=== PATIENT | male | born 1980 | race Caucasian/White ===

== ENCOUNTER 2019-05-08 12:05 | Emergency (ER) | payer OTHER ==
--- NOTE | 2019-05-08 13:52 | ED Physician Documentation ---
PD HPI SKIN - Stated complaint Stated Complaint: R FOOT PX - Chief complaint Chief Complaint: Wound - History obtained from History obtained from: Patient - History of Present Illness Timing - onset: How many days ago (He had a previous lump in his foot break open and has some purulent discharge last night. It is draining a little bit still this morning. He has had 2 lumps on his foot for a year or more after stepping on a nail. He thought that may be some foreign body still left in there. He had seen an orthopedist and had x-ray and MRI without any residual foreign body seen. However he does have a rounded area of granulation tissue that has been unknowingly in the way on the bottom of his foot. However the orthopedic surgeon did not want to remove it at the time. He is recently moved up here. He had not had it drained fluid before.) Timing - details: Abrupt onset (the drainage was abrupt last night. Has had local lump/swelling there for a year or so) Location: RLE (bottom middle arch of right foot.) Quality / character: Painful, Draining Similar symptoms before: No diagnosis Review of Systems Constitutional: denies: Fever, Chills GI: denies: Nausea, Vomiting PD PAST MEDICAL HISTORY - Past Medical History Past Medical History: Yes Cardiovascular: None Respiratory: None Neuro: None Endocrine/Autoimmune: None GI: None : None HEENT: None Psych: None Musculoskeletal: None Derm: None - Past Surgical History Past Surgical History: Yes - Present Medications Home Medications: Ambulatory Orders Medication Instructions Recorded Confirmed Doxycycline Monohydrate 100 mg PO BID #14 tablet 05/08/19 Ibuprofen [Motrin] 600 mg PO TID PRN #25 tab 05/08/19 Mupirocin 1 applic TP TID #15 g 05/08/19 - Allergies Allergies/Adverse Reactions: Allergies Allergy/AdvReac Type Severity Reaction Status Date / Time No Known Drug Allergies Allergy Verified 05/08/19 12:10 - Social History Does the pt smoke?: Yes Smoking Status: Current every day smoker Does the pt drink ETOH?: Yes Does the pt have substance abuse?: Yes Substance Use and Type: Marijuana - Immunizations Immunizations are current?: Yes - POLST Patient has POLST: No PD ED PE NORMAL - Vitals Vital signs reviewed: Yes - General General: Alert and oriented X 3, Well developed/nourished - Derm Derm: Normal color, Warm and dry - Extremities Extremities: Other (The bottom of the right foot and the lateral aspect of the longitudinal arch shows 2 rounded firm areas without redness. Each is about 2 cm in size and adjacent to each other. 1 of them has an opening of the skin small ulceration with mild purulent discharge. Bedside ultrasound showed some thicker granulation tissue walling off both sites under the skin without any residual fluid collections at either spot.) - Neuro Neuro: No motor deficit, No sensory deficit Results - Vitals Vitals: Vital Signs - 24 hr 05/08/19 05/08/19 12:10 14:41 Temperature 36.6 C 36.6 C Heart Rate 66 61 Respiratory 15 18 Rate Blood Pressure 143/89 H 136/80 H O2 Saturation 100 98 Oxygen O2 Source Room air PD MEDICAL DECISION MAKING - ED course Complexity details: considered differential (bedside U/S showed the area to be drained with firm granulation tissue surrounding the cavity. It does not appear to need further I&D.), d/w patient ED course: I referred the patient to podiatry and also orthopedics. I think he would benefit from having these areas of granulation tissue removed from the bottom of his foot as they do look bothersome to walk on and since the one has now gotten infected. We will treat the infection now and he can follow-up with them for potential surgical removal. They are not deep to involve the tendons or such so I would think would be easily surgically removed. Departure - Departure Disposition: 01 Home, Self Care Clinical Impression: Foot infection Condition: Stable Record reviewed to determine appropriate education?: Yes Follow-Up: [facility] [Provider Group] Ankush Hutton MD [Provider Admit Priv/Credential] - Prescriptions: Doxycycline Monohydrate 100 mg PO BID #14 tablet Ibuprofen [Motrin] 600 mg PO TID PRN #25 tab PRN Reason: Pain Mupirocin 1 applic TP TID #15 g Comments: Soak your food in warm water to 3 times a day. You can apply antibiotic ointment mupirocin 2 the open sore. Doxycycline antibiotic twice daily for a week. Add ibuprofen 3 times a day for pain and inflammation. With this regimen, the infection should clear. Also call to follow-up with either podiatry or orthopedics for evaluation to have the underlying granulation tissue (scar tissue) removed. Discharge Date/Time: 05/08/19 14:45
[2019-05-08] MEDS ORDERED: DOXYCYCLINE 100 MG TABLET PO STA (14:31)
[2019-05-08] MEDS ORDERED: IBUPROFEN 600 MG TABLET PO STA (14:31)
[2019-05-08 14:41] VITALS: BP 136/80
== END 2019-05-08 14:45 | disposition home or self-care (01) ==
LOC: ED 12:05
DX: L08.9 Local infection of the skin and subcutaneous tissue, unspecified (principal); F17.200 Nicotine dependence, unspecified, uncomplicated
CPT/HCPCS: 99283; A9270

== ENCOUNTER 2019-09-16 13:33 | Emergency (ER) | payer OTHER ==
[2019-09-16 13:40] VITALS: BP 156/89
--- NOTE | 2019-09-16 15:27 | ED Physician Documentation ---
PD HPI HEENT - Stated complaint Stated Complaint: TOOTH PX - Chief complaint Chief Complaint: Heent - History obtained from History obtained from: Patient - History of Present Illness Timing - onset: How many days ago (3) Timing - duration: Days (3) Timing - details: Gradual onset, Still present Location: Tooth Improves: Medication Worsens: Everything Associated symptoms: Headache. No: Fever, Congestion, Rhinorrhea, Cough Similar symptoms before: Has not had sx before Recently seen: Not recently seen - Additional information Additional information: Previously well 39-year-old male has developed some pain and swelling in his right lower jaw. He has had mounting pain in his pain is now become intolerable as well as the swelling. He has had symptoms for about 3 days and this morning they are intolerable. He has not had fever he has not had this happen to him previously he does have a broken tooth on that side and feels that that is the culprit on this condition as the tooth is very tender. Review of Systems Constitutional: denies: Fever, Chills, Myalgias Eyes: denies: Decreased vision Ears: denies: Ear pain Nose: denies: Rhinorrhea / runny nose, Congestion Throat: reports: Dental pain / toothache Cardiac: denies: Chest pain / pressure, Palpitations Respiratory: denies: Dyspnea, Cough PD PAST MEDICAL HISTORY - Past Medical History Past Medical History: No Cardiovascular: None Respiratory: None Neuro: None Endocrine/Autoimmune: None GI: None : None HEENT: None Psych: None Musculoskeletal: None Derm: None - Past Surgical History Past Surgical History: Yes - Present Medications Home Medications: Ambulatory Orders Medication Instructions Recorded Confirmed Doxycycline Monohydrate 100 mg PO BID #14 tablet 05/08/19 Ibuprofen [Motrin] 600 mg PO TID PRN #25 tab 05/08/19 Mupirocin 1 applic TP TID #15 g 05/08/19 Amoxicillin 875 mg PO BID #14 tablet 09/16/19 Hydrocodone/Acetaminophen 1 - 2 each PO Q6H PRN #14 tablet 09/16/19 [Hydrocodon-Acetaminophen 5-325] - Allergies Allergies/Adverse Reactions: Allergies Allergy/AdvReac Type Severity Reaction Status Date / Time No Known Drug Allergies Allergy Verified 05/08/19 12:10 - Social History Does the pt smoke?: Yes Smoking Status: Current every day smoker Does the pt drink ETOH?: Yes Does the pt have substance abuse?: Yes - Immunizations Immunizations are current?: Yes - POLST Patient has POLST: No PD ED PE NORMAL - Vitals Vital signs reviewed: Yes (hypertensive ) - General General: Alert and oriented X 3, No acute distress, Well developed/nourished - HEENT HEENT: Atraumatic, PERRL, EOMI, Other (There is swelling to the right lower jaw. The swelling is firm to palpation externally and over the buccal/gingival fold. There is a broken tooth on the right lower next to the last molar. 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, No motor deficit, No sensory deficit, Normal speech Eye Opening: Spontaneous Motor: Obeys Commands Verbal: Oriented GCS Score: 15 - Psych Psych: Normal mood, Normal affect Results - Vitals Vitals: Vital Signs - 24 hr 09/16/19 13:35 Temperature 37 C Heart Rate 56 L Respiratory 18 Rate Blood Pressure 156/89 H O2 Saturation 99 Oxygen O2 Source Room air PD MEDICAL DECISION MAKING - ED course Complexity details: reviewed old records, considered differential, d/w patient ED course: 39-year-old male with swelling to the right lower jaw has firm swelling without fluctuance and he has an impressive amount of swelling. He has a broken tooth. We will place him on some amoxicillin and pain medication and asked him to follow-up here should he have development of fluctuance and to follow-up with his dentist for repair of his tooth. Departure - Departure Disposition: 01 Home, Self Care Clinical Impression: Dental abscess Condition: Stable Instructions: ED Abscess Dental Follow-Up: Alvaro Colindres [facility] [Provider Group] Prescriptions: Amoxicillin 875 mg PO BID #14 tablet Hydrocodone/Acetaminophen [Hydrocodon-Acetaminophen 5-325] 1 - 2 each PO Q6H PRN #14 tablet PRN Reason: pain
== END 2019-09-16 16:01 | disposition home or self-care (01) ==
LOC: ED 13:33
DX: K04.7 Periapical abscess without sinus (principal); F17.200 Nicotine dependence, unspecified, uncomplicated
CPT/HCPCS: 99282

== ENCOUNTER 2020-08-31 16:29 | Emergency (ER) | payer OTHER ==
[2020-08-31] MEDS ORDERED: TETANUS/DIPHTHERIA/PERTUSSIS 0.5 ML SYRINGE IM ONE (16:42)
[2020-08-31] MEDS ORDERED: ROPIVACAINE 0.5% PF 20 ML AMPULE SUBQ STA (16:51)
--- OUTSIDE RECORDS SUMMARY | 2020-08-31 16:59 | EXTERNAL MEDICAL SUMMARY RPT | Continuity of Care Document ---
:1980 Demographics Phone Unavailable Preferred Language Unknown Marital Status Unknown [employer] Affiliation Unknown Race Unknown Ethnic Group Unknown Author Organization [place] Address [address] [id number] Phone Social History date description facility [phone]
--- NOTE | 2020-08-31 17:08 | ED Physician Documentation ---
PD HPI UPPER EXT INJURY - Stated complaint Stated Complaint: LT THUMB LAC - Chief complaint Chief Complaint: Laceration - History obtained from History obtained from: Patient - History of Present Illness Location: Left, Finger (thumb) Type of injury: Laceration Where injury occurred: Home Pain level max: 6 Pain level now: 4 Improved by: Rest Worsened by: Moving, Palpating Associated symptoms: No: Weakness, Numbness, Tingling, Swelling - Additonal information Additional information: 40-year-old male with a laceration to the left thumb from an ax while cutting kindling today. Unknown last tetanus shot. Patient is right-handed. Review of Systems Constitutional: denies: Fever GI: denies: Vomiting Skin: denies: Rash PD PAST MEDICAL HISTORY - Past Medical History Past Medical History: Yes Cardiovascular: None Respiratory: None Neuro: None Endocrine/Autoimmune: None GI: None : None HEENT: None Psych: None Musculoskeletal: None Derm: None - Past Surgical History Past Surgical History: Yes - Present Medications Home Medications: Ambulatory Orders Medication Instructions Recorded Confirmed cephALEXin [Keflex] 500 mg PO Q6H #28 cap 08/31/20 - Allergies Allergies/Adverse Reactions: Allergies Allergy/AdvReac Type Severity Reaction Status Date / Time No Known Drug Allergies Allergy Verified 08/31/20 16:36 - Social History Does the pt smoke?: No Smoking Status: Former smoker Does the pt drink ETOH?: No Does the pt have substance abuse?: Yes Substance Use and Type: Marijuana - Immunizations Immunizations are current?: Yes - POLST Patient has POLST: No PD ED PE NORMAL - Vitals Vital signs reviewed: Yes - General General: Alert and oriented X 3, No acute distress - HEENT HEENT: Moist mucous membranes - Derm Derm: Warm and dry - Neuro Neuro: Alert and oriented X 3 - Psych Psych: Normal mood, Normal affect PD ED PE EXPANDED - Extremities DEJA UE/Hands Visual: 1 - laceration (3cm, curved, through nail and pad of thumb) Results - Vitals Vitals: Vital Signs - 24 hr 08/31/20 08/31/20 16:37 17:54 Temperature 36.2 C L 37.1 C Heart Rate 56 L 67 Respiratory 18 16 Rate Blood Pressure 128/76 116/65 O2 Saturation 100 96 Oxygen O2 Source Room air - Rads (name of study) L thumb xray Radiology: Prelim report reviewed, EMP read contemporaneously, See rad report (Minimal comminuted fracture seen involving the distal tip of the distal phalanx of the thumb, with associated soft tissue injury. ) Procedures - Laceration (location) L thumb Length in cm: 3 Wound type: Flap Neurovascular status: Sensory intact, Motor intact, Vascular intact Tendon involvement: Tendon intact Anesthesia: OTH (0.5% ropivicaine) Wound preparation: Irrigated copiously NS, Wound explored, To the base Skin layer closure: Nylon, Dermabond, Interrupted, Size #-0 - enter number (4) Other: Patient tolerated well, No complications, Neurovascular intact, Tetanus booster given (tdap) PD MEDICAL DECISION MAKING - ED course Complexity details: reviewed results, re-evaluated patient, considered differential, d/w patient ED course: Laceration repaired. Tolerated well. We will place on Keflex. There is a minimal comminuted fracture in the distal tip of the phalanx. Placed in a splint. We will have him follow-up with his doctor for wound check in about a week. Patient counseled regarding signs and symptoms for which I believe and urgent re-evaluation would be necessary. Patient with good understanding of and agreement to plan and is comfortable going home at this time This document was made in part using voice recognition software. While efforts are made to proofread this document, sound alike and grammatical errors may occur. Departure - Departure Disposition: 01 Home, Self Care Clinical Impression: Laceration of finger Qualifiers: Encounter type: initial encounter Finger: thumb Damage to nail status: with damage Foreign body presence: without foreign body Laterality: left Qualified Code(s): S61.112A - Laceration without foreign body of left thumb with damage to nail, initial encounter Condition: Good Instructions: ED Laceration Hand Follow-Up: Your,doctor in 1 week [Other] Prescriptions: cephALEXin [Keflex] 500 mg PO Q6H #28 cap Comments: Follow-up with your doctor in about 1 week for a wound check. Take all antibiotics until gone. Return if you worsen. Keep the wound clean. The glue will dissolve on its own. The laceration with the sutures will need to be removed. These need to be removed in about 10 to 14 days. Discharge Date/Time: 08/31/20 18:08
--- NOTE | 2020-08-31 17:12 | XRAY Report ---
PROCEDURE: Finger(s) LT INDICATIONS: L thumb vs ax TECHNIQUE: AP hand, 2 views of the first finger(s) acquired. COMPARISON: None FINDINGS: Bones: There is a minimal, comminuted fracture seen of the distal tip of the distal phalanx of the t humb. No additional fractures or dislocations. No suspicious bony lesions. Soft tissues: Associated soft tissue injury can be seen involving the distal tip of the thumb. IMPRESSION: Minimal comminuted fracture seen involving the distal tip of the distal phalanx of the thumb, with as sociated soft tissue injury. Reviewed by: Ed Hilton MD on 08/31/2020 4:11 PM ABHINAV Approved by: Ed Hilton MD on 08/31/2020 4:11 PM ABHINAV Station ID: [id number]
[2020-08-31] MEDS ORDERED: cephALEXin 250 MG CAPSULE PO STA (17:36)
[2020-08-31 17:55] VITALS: BP 116/65
== END 2020-08-31 18:08 | disposition home or self-care (01) ==
LOC: ED 16:29
DX: S62.522B Displaced fracture of distal phalanx of left thumb, initial encounter for open fracture (principal); W27.0XXA Contact with workbench tool, initial encounter; Y93.89 Activity, other specified; Y92.009 Unspecified place in unspecified non-institutional (private) residence as the place of occurrence of the external cause; Z87.891 Personal history of nicotine dependence
CPT/HCPCS: 12002; 73140; 90471; 90715; 99283; A9270

== ENCOUNTER 2020-12-27 13:43 | Emergency (ER) | payer OTHER ==
[2020-12-27 13:59] VITALS: BP 107/63
--- NOTE | 2020-12-27 14:02 | ED Physician Documentation ---
PD HPI LOWER EXT INJURY - Stated complaint Stated Complaint: LEFT LEG INJURY - Chief complaint Chief Complaint: General - History obtained from History obtained from: Patient - History of Present Illness PD HPI LOW EXT INJURY LOCATION: Left, Hip, Upper leg Type of injury: Fall (he fell from skateboard onto left hip/thigh with swelling and bruising. Has pain on ROM. last evening also had nausea/vomiting few times/ and some diarrhea. Denies impact to abd/chest with the fall and not having abd pain per se.) Where injury occurred: Street Timing - onset: Yesterday Timing - duration: Days (1) Timing - details: Abrupt onset, Still present Worsened by: Moving, Palpating Associated symptoms: Swelling, Discolored (brusing color lateral proximal thigh). No: Weakness, Numbness Contributing factors: No: Anticoagulated, Prosthetic joint Similar symptoms before: Has not had sx before Recently seen: Not recently seen Review of Systems Constitutional: denies: Fever, Chills Nose: denies: Rhinorrhea / runny nose, Congestion Throat: denies: Sore throat Respiratory: denies: Cough GI: reports: Nausea, Vomiting, Diarrhea. denies: Abdominal Pain, Abdominal Swelling, Hematemesis, Bloody / black stool : denies: Dysuria, Frequency Skin: reports: Abrasion (s) (knees) Musculoskeletal: denies: Neck pain, Back pain Neurologic: denies: Altered mental status, Head injury, LOC PD PAST MEDICAL HISTORY - Past Medical History Cardiovascular: None Respiratory: None Neuro: None Endocrine/Autoimmune: None GI: None : None HEENT: None Psych: None Musculoskeletal: None Derm: None - Past Surgical History Past Surgical History: Yes - Present Medications Home Medications: Ambulatory Orders Medication Instructions Recorded Confirmed HYDROcod/ACETAM 5/325 [[place] 5/325] 1 ea PO Q6H PRN #12 tablet 12/27/20 Ondansetron Odt [Zofran] 4 mg TL Q6H PRN #12 tablet 12/27/20 - Allergies Allergies/Adverse Reactions: Allergies Allergy/AdvReac Type Severity Reaction Status Date / Time No Known Drug Allergies Allergy Verified 12/27/20 13:54 - Social History Does the pt smoke?: No Smoking Status: Former smoker Does the pt drink ETOH?: No Does the pt have substance abuse?: Yes - Immunizations Immunizations are current?: Yes - POLST Patient has POLST: No PD ED PE NORMAL - Vitals Vital signs reviewed: Yes - General General: Alert and oriented X 3, Well developed/nourished, Other (does appear somewhat uncomfortable with left hip/thigh movement and palpation. ) - HEENT HEENT: Atraumatic - Neck Neck: Supple, no meningeal sign, No bony TTP, No adenopathy - Cardiac Cardiac: RRR, No murmur - Respiratory Respiratory: Clear bilaterally - Abdomen Abdomen: Normal bowel sounds, Soft, Non tender, Non distended - Back Back: No spinal TTP - Derm Derm: Normal color, Warm and dry - Extremities Extremities: Other (left lateral proximal thigh over the trochanter area with firm swelling and some bruising c/w hematoma. ) - Neuro Neuro: Alert and oriented X 3, No motor deficit, No sensory deficit, Normal speech Results - Vitals Vitals: Vital Signs - 24 hr 12/27/20 13:53 Temperature 37.1 C Heart Rate 80 Respiratory 18 Rate Blood Pressure 107/63 O2 Saturation 99 Oxygen O2 Source Room air - Rads (name of study) left hip Radiology: Prelim report reviewed (no fractures), See rad report PD MEDICAL DECISION MAKING - ED course Complexity details: reviewed results, considered differential (thigh hematoma. Xray to ensure not greater trochanter fracture, which was normal. I think his nausea/vomiting were unrelated (had some diarrhea as well). No abd tenderness nor pain and he did not feel that he impacted abd when fell, so does not seem like abd organ injury.), d/w patient Departure - Departure Disposition: 01 Home, Self Care Clinical Impression: Fall from skateboard, initial encounter Thigh hematoma Qualifiers: Encounter type: initial encounter Laterality: left Qualified Code(s): S70.12XA - Contusion of left thigh, initial encounter Nausea and vomiting Qualifiers: Vomiting type: unspecified Vomiting Intractability: non-intractable Qualified Code(s): R11.2 - Nausea with vomiting, unspecified Condition: Stable Instructions: ED Hematoma Prescriptions: HYDROcod/ACETAM 5/325 [[place] 5/325] 1 ea PO Q6H PRN #12 tablet PRN Reason: Pain Ondansetron Odt [Zofran] 4 mg TL Q6H PRN #12 tablet PRN Reason: Nausea / Vomiting Comments: No fracture on x-ray. He still have a lot of swelling there from a hematoma in the muscle. This should go down gradually over several days to week. Progress activity as tolerated. Warm compresses to the area to soften the hematoma and allow better absorption. Consider anti-inflammatory such as naproxen or ibuprofen 2-3 times a day with food. Add Tylenol if needed for pain. Add hydrocodone every 4-6 hours if needed for worse pain in the short-term. I would anticipate improvement over the next few days. Ondansatron as needed for nausea. My narcotic instructions: I am prescribing a short course of narcotic pain medication for you. These are potentially dangerous and addictive medications that should be used carefully. These medications may constipate you. Take an [id number] stool softener such as docusate twice daily with plenty of water while taking these medications. If you go 24 hours without a bowel movement, take [id number] MiraLAX, per package instructions. Do not drink or drive while taking these medications. If you received narcotic or sedating medications while in the emergency department do not drive for 24 hours. Store this medication in a safe, secure place and out of reach of children. It is a violation of federal law to give or sell this medication to another person or to use in a manner other than prescribed. The ED will not refill narcotic prescriptions, including prescriptions lost or stolen. You can dispose of unwanted medications at the [facility]'s office or at several pharmacies such as [facility]. Discharge Date/Time: 12/27/20 15:09
[2020-12-27] MEDS ORDERED: ONDANSETRON ODT 4 MG TABLET TL STA (14:23)
[2020-12-27] MEDS ORDERED: IBUPROFEN 600 MG TABLET PO STA (14:23)
[2020-12-27] MEDS ORDERED: HYDROcod/ACETAM 5/325 MG TABLET PO STA (14:23)
--- NOTE | 2020-12-27 14:48 | XRAY Report ---
PROCEDURE: Hip w/Pelvis 2-3V LT INDICATIONS: fall with injury to lateral hip TECHNIQUE: AP pelvis with lateral view(s) of the left hip(s). COMPARISON: None. FINDINGS: Bones: No fractures or dislocations. Pelvic ring appears intact. No suspicious bony lesions. [place] us appear to be noted in left hip compatible with mild osteoarthritis. Soft tissues: The visualized bowel gas pattern is normal. No suspicious soft tissue calcifications. IMPRESSION: No fracture. No osseous lesion. If there are persistent symptoms or continued clinical concern for pa thology, then repeat plain film radiographs (7-10 days) or advanced imaging (CT, MR, bone scan) shoul d be considered for further evaluation. Reviewed by: Teresa Yates MD, PhD on 12/27/2020 2:46 PM PDT Approved by: Teresa Yates MD, PhD on 12/27/2020 2:46 PM PDT Station ID: [id number]
== END 2020-12-27 15:09 | disposition home or self-care (01) ==
LOC: ED 13:43
DX: S70.12XA Contusion of left thigh, initial encounter (principal); V00.131A Fall from skateboard, initial encounter; Y93.51 Activity, roller skating (inline) and skateboarding; Y92.410 Unspecified street and highway as the place of occurrence of the external cause; R11.2 Nausea with vomiting, unspecified; R19.7 Diarrhea, unspecified; Z87.891 Personal history of nicotine dependence
CPT/HCPCS: 73502; 99283; 99284; A9270; Q0162